=== PATIENT | male | born 1950 | race Caucasian/White ===

== ENCOUNTER → 2023-10-17 07:52 | Outpatient (REF) | payer OTHER, SELFPAY | LOC: HWRAD 07:52 | PROVIDERS: ATTENDING PHYSICIAN Internal Medicine Cardiovascular Disease; FAMILY PHYSICIAN Family Medicine | DX: I71.40 Abdominal aortic aneurysm, without rupture, unspecified (principal) | CPT/HCPCS: 76770 ==

== ENCOUNTER → 2023-10-18 15:03 | Outpatient (REF) | payer OTHER, SELFPAY | LOC: HWRAD 15:03 | PROVIDERS: ATTENDING PHYSICIAN Internal Medicine Critical Care Medicine; FAMILY PHYSICIAN Family Medicine | DX: R91.1 Solitary pulmonary nodule (principal) | CPT/HCPCS: 71250 ==

== ENCOUNTER → 2023-12-05 13:12 | Outpatient (REF) | payer OTHER, SELFPAY | LOC: RAD 13:12 | PROVIDERS: ATTENDING PHYSICIAN Internal Medicine Cardiovascular Disease; FAMILY PHYSICIAN Family Medicine | DX: I73.9 Peripheral vascular disease, unspecified (principal) | CPT/HCPCS: 93922; 93925 ==

== ENCOUNTER 2024-07-06 01:36 | Inpatient (IN) | payer OTHER, SELFPAY ==
[2024-07-05 20:33] VITALS: BP 163/95
[2024-07-05 21:14] LABS: % Basophils 0.7 % (0-2); % Eosinophils 2.3 % (0-6); % Immature Granulocytes 0.3 % (0-0.5); % Lymphocytes 20.2 % (20.5-51.1); % Monocytes 13.9 % (1.7-9.3); % Neutrophils 62.6 % (42.2-75.2); Absolute Basophils 0.1 10^3/uL (0-0.2); Absolute Eosinophils 0.2 10^3/uL (0-0.7); Absolute Lymphocytes 1.5 10^3/uL (1.2-3.4); Absolute Neutrophils 4.7 10^3/uL (1.4-6.5); Hematocrit 53.3 % (39.0-52.0); Mean Corp Hgb Conc. 33.8 g/dL (33.0-37.0); Mean Corpuscular Volume 91.9 fL (80.0-94.0); Mean Platelet Volume 8.8 fL (7.4-10.4); Nucleated Red Blood Cells % 0 % (-); Platelet Count 175 10^3/uL (130-400); Red Cell Dist. Width 12.9 % (11.5-14.5); White Blood Cell Count 7.5 10^3/uL (4.8-10.8)
[2024-07-05 21:25] LABS: ALT (SGPT) 26 U/L (0-50); AST (SGOT) 28 U/L (17-59); Albumin 4.7 g/dl (3.5-5.0); Alkaline Phosphatase 68 U/L (38-126); Blood Urea Nitrogen 28 mg/dl (9-20); Calcium 9.1 mg/dl (8.4-10.2); Carbon Dioxide 23 mmol/L (22-30); Chloride 107 mmol/L (98-107); Glucose 95 mg/dl (70-99); Potassium 4.4 mmol/L (3.5-5.1); Sodium 142 mmol/L (135-145); Total Bilirubin 0.9 mg/dl (0.2-1.3); Total Protein 7.4 g/dl (6.3-8.2); eGFR 48.85
[2024-07-05 22:28] VITALS: BMI 25.4
[2024-07-05 22:30] VITALS: BP 154/95
[2024-07-05] MEDS: DUONEB 3 ML INH ×2 (22:43→23:28)
[2024-07-05 23:00] VITALS: BP 141/86
[2024-07-05 23:13] LABS: COVID-19 Antigen Negative (Negative)
--- NOTE | 2024-07-05 23:13 | ED.GENMED ---
History of Present Illness
General
Chief Complaint: Breathing Problem
Source: patient and spouse
Exam Limitations: none
Time Seen by Provider: 07/05/24 22:23
Nursing documentation reviewed up to this point in time: agreed with
History of Present Illness
History of Present Illness:
74 yo male with h/o COPD, Afib on Eliquis, CAD, HTN, bilat carotid endarterectomy, CABG w stent, BPH, presents for cough, SOB. States started with general body aches and cough 4 days ago that has become gradually worse and last night congestion in
chest with wheezing, and few small episodes diarrhea. Denies fever. Denies chest pain.
Past History
Past History
ED Past Medical History: Arrthythmia (A-fib on Eliquis), CAD, COPD, CVA, HTN and Other (BPH)
ED Past Surgical History: Cardiac
Social History
Tobacco: Former smoker
Alcohol: Occasional
Personal:
Living: with family
Employment: Retired
Review of Systems
Review of Systems
Allergies reviewed?: Yes
All Other Systems: ROS reviewed and negative except as documented in HPI and ROS
Constitutional: Reports fever and fatigue
EENT: Denies sore throat
Respiratory: Reports cough and trouble breathing
Cardiac: Denies chest pain
ABD/GI: Reports diarrhea; Denies abdominal pain, nausea or vomiting
: Denies dysuria, frequency or difficulty voiding
Musculoskeletal: Reports no symptoms
Skin: Reports no symptoms
Neurological: Reports no symptoms
Phy Exam
Physical Exam
Physical Exam:
GENERAL: No acute distress. A&Ox3.
CONSTITUTIONAL: Afebrile.
EYES: clear, conjunctivae normal
ENMT: moist mucus membranes, Pharynx nl
RESPIRATORY: Regular respirations, mildly labored, expiratory wheezes throughout, frequent paroxysms of cough.
CARDIOVASCULAR: Regular rate and rhythm, no murmurs, no rubs.
GI: Soft, nontender, normal BS
MUSCULOSKELETAL: Moves with ease. Well perfused.
SKIN: Warm, dry, pink
PSYCH: Normal mood and affect. Well kept, interactive and appropriate
NEUROLOGIC: Awake, alert and oriented. No focal neurological deficits
Scores
Heart Failure Risk
Heart Failure Risk Score: Not Applicable
Course
Orders/Labs/Results
Orders:
Orders
07/05/24 20:38
Electrocardiogram (*1) Urgent
Reason for Study: Shortness of Breath
CR Chest - 2 Views Urgent
Comment:
Reason For Exam: sob x 4 days
07/05/24 20:40
EKG- Treatment ONCE
07/05/24 20:48
Complete Blood Count/With Diff Urgent
Comprehensive Metabolic Panel Urgent
07/05/24 22:38
COVID-19 Antigen Urgent
Source: Nasal Swab
INF RAPID [Influenza A+B Rapid Molecular] Urgent
WAYLON Source: Nasal Swab
Specimen Description:
07/05/24 22:39
Ipratropium/Albuterol Sulfate [Duoneb] 3 ml INH R NOW ONE
07/05/24 23:18
Dexamethasone Sod Phosphate [Decadron] 10 mg IV NOW STA
Ipratropium/Albuterol Sulfate [Duoneb] 3 ml INH R NOW STA
07/06/24 00:37
Admit/Transfer Patient As Directed
Co-Sign Provider:
Level of Care: Inpatient admission
Assign to:: Telemetry
Physician / Group: Layton
Diagnosis: COPD exacerbation
Reason for Telemetry: Arrhythmia
Date to Stop Telemetry: 07/09/24
Time to Stop Telemetry: 11:00
Reason for Hospitalization: COPD exacerbation
Expected length of stay greater than two midnights?: Yes
ELOS- Estimated Length of Stay in days: 3
I certify the patient meets the requirements for IP care: Yes
PRN Pain Medication Management As Directed
May give lesser potent ordered pain med per pt: Yes
preference::
Protocol:: Medication orders for pain may be administered in a
manner that supports deferring to patient preference
when the pt is:
- Requesting an ordered lesser potent pain medication.
Least to most potent pain medications are defined
as: acetaminophen < NSAID < tramadol < opioids
(morphine, oxycodone, hydromorphone).
- Requesting a lesser dose of the same medication IF
ORDERED.
- Requesting a less intrusive route of administration
if both routes are prescribed by the provider (PO <
IV).
07/06/24 00:39
Code Status As Directed
Resuscitation Status: Full Code
07/09/24 11:00
DC Protocol for Telemetry ONCE
Abnormal Lab Results
07/05/24
20:48
Hct 53.3 H %
(39.0-52.0)
Absolute Monos (auto) 1.0 H 10^3/uL
(0.1-0.6)
Lymphocytes % 20.2 L %
(20.5-51.1)
Monocytes % 13.9 H %
(1.7-9.3)
BUN 28 H mg/dl
(9-20)
Creatinine 1.5 H mg/dL
(0.7-1.3)
07/05/24 20:48
07/05/24 20:48
Vital Signs
Initial and Last Documented VS:
Initial Vital Signs
Temp Pulse Resp BP Pulse Ox
99.9 F 103 18 163/95 94
07/05/24 20:33 07/05/24 20:33 07/05/24 20:33 07/05/24 20:33 07/05/24 20:33
Last Documented Vital Signs
Temp Pulse Resp BP Pulse Ox
99.9 F 103 30 139/78 94
07/05/24 20:33 07/06/24 01:00 07/06/24 01:00 07/06/24 01:20 07/06/24 01:30
MDM/Problems Addressed
Differential Diagnosis Includes:
COPD exacerbation, PNA, Covid, adjustment
MDM/Problems Addressed:
74 yo male with h/o COPD, Afib on Eliquis, CAD, HTN, bilat carotid endarterectomy, CABG w stent, BPH, presents for cough, SOB. States started with general body aches and cough 4 days ago that has become gradually worse and last night congestion in
chest with wheezing, and few small episodes diarrhea.
Denies fever. Denies chest pain.
CBC with no clinically significant abnormality
CMP with no clinically significant abnormality
COVID-negative
Flu negative
Chest x-ray radiology report read: No acute cardiopulmonary process.
11:30 p.m.
Plan: admit: COPD exacerbation
Hospitalist notified of admission
Chronic conditions affecting care: HTN, CAD and Arrhythmia (Afib on Eliquis)
*Critical Care Note
Total Time (30-74mins, 75-104mins- exclusive of procedures): Not Applicable
ED Attending Note
-
Portions of this chart may have been created with voice recognition software.� Occasional wrong word or��sound alike� substitutions may have occurred due to the inherent limitations of voice recognition software.
Discharge Plan
Departure
Patient Disposition: Admit
Date of Disposition: 07/05/24
Time of Disposition: 23:34
Admit to: Med/Surg
Presentation/result/management discussed w/ accepting MD/DO: Hospitalist
Patient with high blood pressure during this ER visit?: No
Condition: Fair
Covid-19: Negative COVID-19
Discharge Problem:
Acute exacerbation of chronic obstructive pulmonary disease
Interventions
Interventions:
*Risk Screen - Suicide Last Done: 07/05/24 20:33
*General Assessment Last Done: 07/05/24 20:33
*Neglect/Abuse Screening Last Done: 07/05/24 20:33
*ED- Fall Risk Assessment Last Done: 07/05/24 22:31
*ED COVID-19 Vaccine History Last Done: 07/05/24 22:31
ED- Cardiac Assessment Last Done: 07/05/24 22:45
ED- Pulmonary Assessment Last Done: 07/05/24 22:45
[2024-07-05] MEDS: DECADRON 10 MG IV (23:27)
[2024-07-06] VITALS (10 sets, daily range): BP systolic 106–156; BP diastolic 78–105; BMI 24.6
--- NOTE | 2024-07-06 00:41 | HPS.HSE ---
Family Physician
-
Family Physician: Amilcar Raya, DO
Chief Complaint
-
SOB
History of Present Illness
Patient is a 74y M with PMH significant for ASCVD, A-Fib and COPD who presents to ED complaining of SOB. Patient states that he started with myalgias and 'aches and pains' all over on Monday. He has had cough and SOB that have steadily worsened
since that time. No noted fevers / chills. He was severely SOB this evening and presented to the ED for further evaluation.
Patient has appreciated audible wheezing. He states that he was at a family republic[employer] over the weekend and some people there seemed to have respiratory symptoms.
Patient took Coricidin at home without improvement in his symptoms.
Patient states that he ran out of his Trelegy inhaler about 3 weeks ago and has yet to get it refilled.
He has a nebulizer at home, but he has not been using it lately, either.
Medical History
Past Medical History
Past Medical History: Reports Other
Additional Past Medical History:
ASCVD
Hypertension
COPD
CKD III
Paroxysmal A-Fib
BARRY - Intolerant of CPAP
AAA
Past Surgical History: Reports Other
Additional Past Surgical History:
CABG x 2
Bilateral CEA
PTCA with Stent
Social History
Tobacco: Former Smoker (Quit smoking 15 years ago. > 40 pack years total use.)
Alcohol: None
Family History
Family History: Not pertinent
Allergies / Home Medications
Allergies reflects when Allergies were last updated in [employer].
Home Medications with original date entered in [employer]
Allergy/Medication List:
Allergies
Allergy/AdvReac Type Severity Reaction Status Date / Time
No Known Allergies Allergy Verified 01/12/23 14:03
Home Medications
apixaban 5 mg tablet (Eliquis) 5 mg PO BID Arrhythmia #60 tabs 02/09/21
amlodipine 5 mg tablet 5 mg PO HS 01/12/23
ascorbic acid (vitamin C) 1,000 mg tablet (Vitamin C) 1,000 mg PO DAILY supplement 01/12/23
ezetimibe 10 mg tablet 10 mg PO HS 01/12/23
tamsulosin 0.4 mg capsule 0.4 mg PO HS 01/12/23
albuterol sulfate 90 mcg/actuation aerosol inhaler 2 puff inhalation R Q6HPRN PRN shortness of breath or wheezing 07/05/24
cholecalciferol (vitamin D3) 50 mcg (2,000 unit) tablet (Vitamin D3) 50 mcg PO DAILY 07/05/24
cyanocobalamin (vitamin B-12) 1,000 mcg tablet 1,000 mcg PO DAILY 07/05/24
losartan 50 mg tablet 50 mg PO HS 07/05/24
potassium chloride 10 mEq capsule,extended release 10 meq PO DAILY 07/05/24
rosuvastatin 40 mg tablet 40 mg PO HS 07/05/24
zinc sulfate 50 mg zinc (220 mg) tablet 50 mg PO DAILY 07/05/24
Review of Systems
-
History Source: Patient
A 12 point ROS was completed and negative except as noted: Yes
Constitutional: Reports Fatigue; Denies Fever or Chills
EENT: Denies Sore Throat
Respiratory: Reports Cough and Trouble Breathing
Cardiac: Denies Chest Pain or Palpitations
Abdomen/GI: Reports Diarrhea (single episode.); Denies Abdominal Pain, Nausea or Vomiting
: Denies Dysuria, Frequency or Flank Pain
Musculoskeletal: Reports Joint Pain and Muscle Pain; Denies Edema
Neurological: Reports Headache; Denies Dizzy
Psych: Denies Depression or Anxiety
Physical Exam
Vital Signs
Vital Signs
Temp Pulse Resp BP Pulse Ox
99.9 F 113 23 106/83 94
07/05/24 20:33 07/06/24 00:00 07/06/24 00:00 07/06/24 00:00 07/06/24 00:19
Physical Exam
General: Other (74y M in mild - moderate respiratory distress.)
HEENT: Moist mucous membranes and PERRLA
Respiratory: Other (Diffuse expiratory wheezes. Harsh cough following deep inspiration. No rales.)
Cardiac: S1/S2, Irregular Rhythm and Tachycardia; No Murmur
GI: Soft, Non Tender, Non Distended and Normal Bowel Sounds
Musculoskeletal: No Clubbing, No Cyanosis and No Edema
Neuro: AO x 3
Laboratory Results
-
07/05/24 20:48
07/05/24 20:48
Laboratory Results
Total Bilirubin 0.9 mg/dl (0.2-1.3) 07/05/24 20:48
AST 28 U/L (17-59) 07/05/24 20:48
ALT 26 U/L (0-50) 07/05/24 20:48
Alkaline Phosphatase 68 U/L (38-126) 07/05/24 20:48
Impression/Plan
-
A/P: Patient is a 74y M with PMH significant for ASCVD, HTN and COPD who presents to ED complaining of 5 days of progressively worsening cough and SOB.
AE-COPD
Acute Hypoxemic Respiratory Insufficiency secondary to the above
- Admit for further evaluation and treatment.
- SpO2 at the time of my examination was 88% on 2 lpm of supplemental O2.
- COVID / flu negative in the ED. CXR unremarkable.
- IV steroids, nebs ATC and PRN. PO doxycycline course.
- Pulmonary evaluation for additional recommendations.
- Follow for clinical improvement.
- Wean from O2 as able (not on chronic O2 at home).
ASCVD
- Stable. No chest pain. EKG is without acute ischemic changes.
- Continue usual CV med regimen.
Paroxysmal Atrial Fibrillation
- Stable. In A-Fib at present (? permanent).
- Continue current med regimen including Eliquis.
CKD III
- Stable. Renal function is at / near known baseline.
BARRY
- Patient notes that he is intolerant of PAP therapy.
BPH
- Continue tamsulosin.
- Bladder scan protocol.
DVT Prophylaxis: On Eliquis
Code Status: Full
[2024-07-06] MEDS: TYLENOL 650 MG PO (02:05)
--- NOTE | 2024-07-06 04:55 | PTCARENOTE ---
Receive pt from ER. Pt alert oriented X3, calm and cooperative, mild dyspnea at rest noted. Pt assist X1 to his bed, feels slightly weak. Pt with exp wheezes, harsh, no productive cough, but states that he feels better than when he came in. VSS
(T=98, TR=179, RR=20, ZP=340/91, SpO2=94% on 2L NC). Will continue to monitor the pt.
[2024-07-06 05:53] LABS: Hematocrit 51.7 % (39.0-52.0); Hemoglobin 17.4 g/dL (13.0-18.0); Mean Corp Hgb Conc. 33.7 g/dL (33.0-37.0); Mean Corpuscular Hgb 31.1 pg (27.0-31.0); Mean Corpuscular Volume 92.3 fL (80.0-94.0); Mean Platelet Volume 9.1 fL (7.4-10.4); Platelet Count 174 10^3/uL (130-400); Red Cell Dist. Width 12.7 % (11.5-14.5); White Blood Cell Count 5.3 10^3/uL (4.8-10.8)
[2024-07-06 06:06] LABS: Blood Urea Nitrogen 27 mg/dl (9-20); Calcium 8.8 mg/dl (8.4-10.2); Carbon Dioxide 21 mmol/L (22-30); Chloride 107 mmol/L (98-107); Estimated Creatinine Clearance 42 ml/min; Glucose 219 mg/dl (70-99); Potassium 4.6 mmol/L (3.5-5.1); Sodium 141 mmol/L (135-145); eGFR 53.07
[2024-07-06] MEDS: DUONEB 3 ML INH ×4 (08:05→19:40)
--- NOTE | 2024-07-06 09:32 | W.PN.UPDATE ---
Update Note
Progress Note Update
Non-billable addendum
H&P submitted 1 AM
admitted with AECOPD. Feels slightly improved since rested and less SOB. remains on 2L NC.
Assessment:
AE-COPD
Acute Hypoxemic Respiratory Insufficiency secondary to the above
- SpO2 at the time of my examination was 88% on 2 lpm of supplemental O2.
- COVID / flu negative in the ED. CXR unremarkable.
- IV steroids, nebs ATC and PRN. PO doxycycline course.
- Pulmonary evaluation for additional recommendations.
- Follow for clinical improvement.
- Wean from O2 as able (not on chronic O2 at home).
ASCVD
- Stable. No chest pain. EKG is without acute ischemic changes.
- Continue usual CV med regimen.
Paroxysmal Atrial Fibrillation
- Stable. In A-Fib at present (? permanent).
- Continue current med regimen including Eliquis.
CKD III
- Stable. Renal function is at / near known baseline.
BARRY
- Patient notes that he is intolerant of PAP therapy.
BPH
- Continue tamsulosin.
- Bladder scan protocol.
DVT Prophylaxis: Eliquis
Code Status: Full
[2024-07-06] MEDS: ELIQUIS 5 MG PO ×2 (09:45→20:32)
[2024-07-06] MEDS: VIBRAMYCIN 100 MG PO (09:46)
[2024-07-06] MEDS: SOLU-MEDROL PF 60 MG IV ×3 (09:55→23:14)
--- NOTE | 2024-07-06 13:58 | CM ---
CM following re: discharge planning.
Reviewed pt's chart, met with pt.
pt is a 74 year old male, admitted with primary dx of COPD. PMH includes: ASCVD, A-Fib and COPD. Does not have home O2.
Pt reports he lives with spouse 2SH, 3 steps to enter, has 3 supportive stepchildren. Pt described himself as independent in all areas [employer].
PCP: Amilcar Raya
[facility]
D/C plan: home with anticipated no needs. Spouse to transport at discharge.
CM will follow with discharge plan updates as hospitalization progresses
--- NOTE | 2024-07-06 14:30 | PTCARENOTE ---
pt with coughing episode, nonproductive, harsh cough. HR up to 140, non sustaining. SOB noted. SPO2 94% on 2L O2. Made Dr. Camilo aware, see orders for Tessalon Perles and Phenergan with codeine, will monitor.
--- NOTE | 2024-07-06 14:50 | CON.PUL ---
Consultation
Consultation Request
Date/Time Consultation Requested: 07/06/2024 - 222
Date/Time Consultation Performed: 07/06/2024 - 1230
Requesting Provider: Dr. Traylor
Performing Provider: Dr. Coles
Reason for Consultation: AECOPD
Medical History
-
Chief Complaint: SOB
History of Present Illness:
74-year-old male former tobacco smoker with a past medical history of COPD/emphysema, hypertension, AAA, PVD, CAD, hypercholesterolemia, CKD, BARRY intolerant to CPAP, A-fib, history of CVA and pulmonary hypertension who presents with shortness of
breath for several days. He had a recent URI about 1 week prior to arrival while at a family democrat where several people there had respiratory symptoms. He had a cough and shortness of breath that had worsened since that time. No fevers or chills.
Patient follows with us in the pulmonary office, last visit 05/01/2024 with Phyllis Ponce -he was given a sample of Trelegy 100mcg and he was supposed to call to get it officially sent over as a prescription but he never did this. He believes that
he felt that his breathing was stable on the Trelegy but he does not think that it markedly improved. last bobby on 05/01/2024 showing moderate COPD; last PFT on 08/10/2022 showing moderate COPD with a moderately reduced gas exchange capacity which
is mild when accounting for alveolar volume involved in gas exchange (DLco: 57%, DLco/VA: 67%). Currently, patient's absolute eosinophils are 200, creatinine 1.5, and imaging shows no acute process. He does have known scarring in his lingula and
lateral left lower lobe seen on prior CT chest from September 2023. He was given DuoNebs and Decadron in the ER and admitted to the floor for further management. Pulmonary service now consulted for additional management/recommendations.
When I saw the patient, patient's , Anitra, present at bedside. He says he feels well today, lop-ear than yesterday. Currently on 2 L/min nasal cannula. Still short of breath with exertion and still coughing. His cough is mainly dry although
sometimes has phlegm that he produces. Per the , when he lays down he has postnasal drip which causes him to cough and then he deteriorates from there. He is not on home oxygen. He currently denies chest pain, FLORES, nausea, fevers or chills.
PMHx: AAA, PVD, COPD/emphysema, hypertension, CAD, hypercholesterolemia, CKD, BARRY intolerant to CPAP, A-fib, secondary hyperparathyroidism, history of CVA, right thyroid nodule, pulmonary hypertension
PSHx: CABG x 2, coronary stent, cardioversion
Past Medical History
Past Medical History: Other (Above as per HPI)
Past Surgical History: Other (Above as per HPI)
Social History
Tobacco: Former Smoker (>23-[id number]-biwr history, quit 2010)
Alcohol: None
Drug: None
Personal:
Living: With Family (=Anitra)
Family History
Family History: Cancer (Brother: Stomach cancer) and Other (Father: Valvular heart disease; Sister: Advanced multiple sclerosis)
Allergies / Home Medications
Allergies
Allergy/AdvReac Type Severity Reaction Status Date / Time
No Known Allergies Allergy Verified 01/12/23 14:03
Home Medications
�Medication �Instructions �Recorded �Confirmed �Last Taken �Type
apixaban 5 mg tablet (Eliquis) 5 mg PO BID Arrhythmia #60 tabs 04/28/20 07/05/24 2 Days Ago Rx
~01/10/23
amlodipine 5 mg tablet 5 mg PO HS 01/12/23 07/05/24 2 Days Ago History
~01/10/23
ascorbic acid (vitamin C) 1,000 mg 1,000 mg PO DAILY supplement 01/12/23 07/05/24 Unknown History
tablet (Vitamin C)
ezetimibe 10 mg tablet 10 mg PO HS 01/12/23 07/05/24 2 Days Ago History
~01/10/23
tamsulosin 0.4 mg capsule 0.4 mg PO HS 01/12/23 07/05/24 2 Days Ago History
~01/10/23
albuterol sulfate 90 mcg/actuation 2 puff inhalation R Q6HPRN PRN 07/05/24 07/05/24 Unknown History
aerosol inhaler shortness of breath or wheezing
cholecalciferol (vitamin D3) 50 50 mcg PO DAILY 07/05/24 07/05/24 Unknown History
mcg (2,000 unit) tablet (Vitamin
D3)
cyanocobalamin (vitamin B-12) 1,000 mcg PO DAILY 07/05/24 07/05/24 Unknown History
1,000 mcg tablet
losartan 50 mg tablet 50 mg PO HS 07/05/24 07/05/24 Unknown History
potassium chloride 10 mEq 10 meq PO DAILY 07/05/24 07/05/24 Unknown History
capsule,extended release
rosuvastatin 40 mg tablet 40 mg PO HS 07/05/24 07/05/24 Unknown History
zinc sulfate 50 mg zinc (220 mg) 50 mg PO DAILY 07/05/24 07/05/24 Unknown History
tablet
Review of Systems
-
History Source: Patient
All other systems: Negative unless noted
Vitals / Labs / Diagnostic Testing
Vital Signs
Temp Pulse Resp BP Pulse Ox
97.7 F 96 16 137/81 97
07/06/24 07:50 07/06/24 08:09 07/06/24 08:09 07/06/24 07:50 07/06/24 08:09
Lab Data
07/06/24 04:54
07/06/24 04:54
Microbiology
07/05/24 22:38 Nasal Swab Influenza Types A & B (GAMALIEL) - Final
Negative for Influenza A & B, NAAT
Negative results must be combined with clinical observations
and patient history.
Nucleic Acid Amplification test (NAAT)performed on the
[employer] platform.
Diagnostic Testing:
Physical Exam
-
HEENT: Normocephalic and Anicteric
Cardiovascular: Peripheral Edema (negative) and Other (Tachycardic)
Respiratory: Wheeze ([place] bilaterally upon expiration), Rales (negative), Rhonchi (negative) and Non-Labored Respirations
GI: Soft, Non Distended, Non Tender and Normal Bowel Sounds
Neurology: AO x 3 and Tremors (negative)
Skin: Warm and Dry
General: Respiratory Distress (negative), Comfortable, Fever (negative) and Chills (negative)
Assessment
-
Assessment: 74-year-old male former tobacco smoker with a past medical history of COPD/emphysema, hypertension, AAA, PVD, CAD, hypercholesterolemia, CKD, BARRY intolerant to CPAP, A-fib, history of CVA and pulmonary hypertension who presents with
shortness of breath for several days. He had a recent URI about 1 week prior to arrival while at a family democrat where several people there had respiratory symptoms. He had a cough and shortness of breath that had worsened since that time. No
fevers or chills. Patient follows with us in the pulmonary office, last visit 05/01/2024 with Phyllis Ponce -he was given a sample of Trelegy 100mcg and he was supposed to call to get it officially sent over as a prescription but he never did this.
He believes that he felt that his breathing was stable on the Trelegy but he does not think that it markedly improved. last bobby on 05/01/2024 showing moderate COPD; last PFT on 08/10/2022 showing moderate COPD with a moderately reduced gas
exchange capacity which is mild when accounting for alveolar volume involved in gas exchange (DLco: 57%, DLco/VA: 67%). Currently, patient's absolute eosinophils are 200, creatinine 1.5, and imaging shows no acute process. He does have known
scarring in his lingula and lateral left lower lobe seen on prior CT chest from September 2023. He was given DuoNebs and Decadron in the ER and admitted to the floor for further management. Pulmonary service now consulted for additional
management/recommendations.
Chronic conditions [employer]: AAA, PVD, COPD/emphysema, hypertension, CAD, hypercholesterolemia, CKD, BARRY intolerant to CPAP, A-fib, secondary hyperparathyroidism, history of CVA, right thyroid nodule, pulmonary hypertension
Impression:
#Acute COPD exacerbation
#Acute respiratory failure with hypoxia due to above
#ROSA ISELA
#Hyperglycemia
#History of gold class II COPD with centrilobular emphysema seen on CT chest imaging
#Scarring in the lingula + left lower lobe seen on CT chest from 09/2023
#Former tobacco smoker (>[id number] history, quit 2010)
Plan:
- Now that he is hospitalized for a COPD exacerbation, he has group E COPD
- He is prescribed Trelegy as an outpatient but does not have an official prescription; this needs to be started upon discharge from the hospital; if too costly then would do Incruse + Breo
- He is currently wheezing so would wait to start MDI or DPI inhalers until his respiratory status improves and he can take in a deep breath with good technique
- For now continue with DuoNebs QID, and I will start budesonide BID
- Continue prn albuterol
- Continue systemic steroids, currently on solumedrol 60mg IV q8hr - wean as he clinically improves
- Monitor BG while on high-dose steroids, with goal >100 and <180; check A1C
- Antitussants prn; mucolytics prn
- Aspiration precautions
- Seems as if he has postnasal drip when he lays supine; I encouraged him to use Flonase as an outpatient and to use it every single day at least for 30 days before he decides it does not work
- Perhaps he also could see ENT as an outpatient
- He may be a candidate for other agents like azithromycin or Ohtuvayre. Given that his absolute eosinophils are <300, do not feel that he would benefit from Dupixent
- Given that he has no evidence of pneumonia and his WBC count is normal, unclear if he needs doxycycline
- Will switch to azithromycin given its anti-inflammatory effect which would be more beneficial compared to doxycycline
- QTc was 387 ms on admission EKG
- Maintain SpO2 88-95% with supplemental O2 and wean down as tolerated (he is not on home O2)
- He will need an ambulatory pulse oximetry prior to discharge
- Incentive spirometer encouraged q1hr while awake
- For his A-fib, rate control with goal <110
- Replete electrolytes with K>4, Mg>2
- Trend H/H and transfuse if needed to keep Hb>7g/dL; keep plt>20k, unless there is concern for bleeding then keep plt>50k
- DVT ppx: Eliquis
Pulmonary service will continue to follow along. He will continue to follow-up with us in the office - last visit on 05/01/2024 with MEGAN Xiao - he usually sees Dr. Anderson. He will be due for a repeat CT chest for lung cancer screening in
September 2024.
Data:
CXR 07/05/2024: No acute cardipulmonary process.
Total time spent today was 58 minutes for this encounter. Time includes reviewing laboratory test/imaging results, reviewing pertinent medical records, obtaining and reviewing medical history, performing an appropriate exam, ordering medications,
tests and procedures. Time also includes documentation of this encounter, coordinating patient care and communicating with other healthcare professionals. Total time does not include separately billed tests performed on this date of service.
[2024-07-06] MEDS: PHENERGAN WITH CODEINE SYRUP 5 ML PO ×2 (15:08→20:45)
[2024-07-06] MEDS: TESSALON PERLES 200 MG PO (17:22)
[2024-07-06] MEDS: PULMICORT 0.5 MG INH (19:40)
[2024-07-06] MEDS: ZITHROMAX INFUSION 250 IV (20:31)
[2024-07-06] MEDS: FLOMAX 0.4 MG PO (23:13)
[2024-07-06] MEDS: COZAAR 50 MG PO (23:13)
[2024-07-06] MEDS: NORVASC 5 MG PO (23:13)
[2024-07-06] MEDS: CRESTOR 40 MG PO (23:13)
[2024-07-06] MEDS: VENTOLIN NEBULES 2.5 MG INH (23:33)
[2024-07-07] MEDS: PHENERGAN WITH CODEINE SYRUP 5 ML PO ×3 (00:55→19:53)
[2024-07-07 03:32] VITALS: BP 118/66
[2024-07-07 05:49] LABS: Hematocrit 48.5 % (39.0-52.0); Hemoglobin 16.6 g/dL (13.0-18.0); Mean Corp Hgb Conc. 34.2 g/dL (33.0-37.0); Mean Corpuscular Hgb 31.3 pg (27.0-31.0); Mean Corpuscular Volume 91.5 fL (80.0-94.0); Mean Platelet Volume 8.9 fL (7.4-10.4); Platelet Count 169 10^3/uL (130-400); Red Cell Dist. Width 12.7 % (11.5-14.5); White Blood Cell Count 15.3 10^3/uL (4.8-10.8)
[2024-07-07 06:00] VITALS: BMI 24.4
[2024-07-07 06:12] LABS: Blood Urea Nitrogen 39 mg/dl (9-20); Calcium 9.3 mg/dl (8.4-10.2); Carbon Dioxide 20 mmol/L (22-30); Chloride 105 mmol/L (98-107); Estimated Creatinine Clearance 46 ml/min; Glucose 152 mg/dl (70-99); Potassium 4.3 mmol/L (3.5-5.1); Sodium 140 mmol/L (135-145); eGFR 58.01
[2024-07-07] MEDS: DUONEB 3 ML INH ×4 (07:26→19:09)
[2024-07-07] MEDS: PULMICORT 0.5 MG INH ×2 (07:26→19:09)
[2024-07-07 07:30] VITALS: BP 115/70
[2024-07-07] MEDS: ZITHROMAX 250 MG PO (08:57)
[2024-07-07] MEDS: ELIQUIS 5 MG PO ×2 (08:57→19:52)
[2024-07-07] MEDS: SOLU-MEDROL PF 60 MG IV ×3 (08:57→23:00)
[2024-07-07 09:42] LABS: Glycohemoglobin (HgbA1c) 5.9 % (4.0-5.6)
--- NOTE | 2024-07-07 09:51 | W.PN.HOSP.TC ---
Today's Communication/Plan
-
continue IV steroids
continue steroid nebs, bronchodilators scheduled and prn
continue azithromycin
wean O2 as able
follow pulm recs
Assessment / Plan
Assessment / Plan
Assessment:
AE-COPD
Acute Hypoxemic Respiratory Insufficiency secondary to the above
- COVID / flu negative in the ED. CXR unremarkable.
- IV steroids, nebs ATC and PRN. Steroid nebs
- Trelegy at discharge
- PO azithromycin course.
- Follow for clinical improvement.
- Wean from O2 as able (not on chronic O2 at home).
- appreciate Pulmonary eval; follow their recs
ASCVD
- Stable. No chest pain. EKG is without acute ischemic changes.
- Continue usual CV med regimen.
Paroxysmal Atrial Fibrillation
- Stable. In A-Fib at present (? permanent).
- Continue current med regimen including Eliquis.
CKD III
- Stable. Renal function is at/near known baseline.
BARRY
- Patient notes that he is intolerant of PAP therapy.
BPH
- Continue tamsulosin.
- Bladder scan protocol.
DVT Prophylaxis: Eliquis
Code Status: Full
Anticipated Discharge: > 48 hours
Subjective/Interval History
-
Date of Service: July 07, 2024
reports some improvement in wheezing
Objective Data
-
Labs:
Laboratory Results
07/07/24
04:53
WBC 15.3 H
Hgb 16.6
Hct 48.5
Plt Count 169
Sodium 140
Potassium 4.3
Chloride 105
Carbon Dioxide 20 L
BUN 39 H
Creatinine 1.3
Glucose 152 H
Calcium 9.3
Vital Signs:
Vital Signs
Temp Pulse Resp BP Pulse Ox
98.0 F 90 18 115/70 94
07/07/24 07:30 07/07/24 07:30 07/07/24 07:30 07/07/24 07:30 07/07/24 07:30
I&O
07/06/24 07/07/24 07/08/24
06:59 06:59 06:59
Intake Total 900 / 900
Balance 900 / 900
Physical Exam
-
General: No Apparent Distress
HEENT: Normocephalic and Atraumatic
Respiratory: Wheezes
Cardiac: Regular Rhythm and S1/S2
GI: Soft and Nontender
Genito-urinary: No Costovertebral Tender
Musculoskeletal: No Edema
Neuro: AO x 3
Psych: Calm
Data Reviewed
-
Total Time Spent with Patient (in minutes): 44
Labs: Labs Reviewed by me
[2024-07-07 11:03] VITALS: BP 124/69
[2024-07-07 15:40] VITALS: BP 131/76
--- NOTE | 2024-07-07 16:40 | W.PN.PUL3 ---
Addendum entered and electronically signed by Meño Coles MD 07/07/24 19:23:
Correction - wean down to Solu-Medrol 40mg IV q12hr tomorrow, not 60mg q12hr
Original Note:
Today's Communication / Plan
-
DuoNebs + budesonide
SpO2 goal 88-95%
Check ambulatory pulse oximetry prior to discharge
Up OOB as tolerated
Anti-tussants prn
Encouraged incentive spirometer however he had a coughing spell yesterday after using it so I told him to wait until tomorrow to start using again
Systemic steroids with weaning down to 60 mg IV q12hr tomorrow
Goal BG 140�180
Continue Eliquis
Outpatient pulmonary office follow-up will be arranged
Assessment
-
Assessment: 74-year-old male former tobacco smoker with a past medical history of COPD/emphysema, hypertension, AAA, PVD, CAD, hypercholesterolemia, CKD, BARRY intolerant to CPAP, A-fib, history of CVA and pulmonary hypertension who presents with
shortness of breath for several days. He had a recent URI about 1 week prior to arrival while at a family alliance party where several people there had respiratory symptoms. He had a cough and shortness of breath that had worsened since that time. No
fevers or chills. Patient follows with us in the pulmonary office, last visit 05/01/2024 with Phyllis Ponce -he was given a sample of Trelegy 100mcg and he was supposed to call to get it officially sent over as a prescription but he never did this.
He believes that he felt that his breathing was stable on the Trelegy but he does not think that it markedly improved. last bobby on 05/01/2024 showing moderate COPD; last PFT on 08/10/2022 showing moderate COPD with a moderately reduced gas
exchange capacity which is mild when accounting for alveolar volume involved in gas exchange (DLco: 57%, DLco/VA: 67%). Currently, patient's absolute eosinophils are 200, creatinine 1.5, and imaging shows no acute process. He does have known
scarring in his lingula and lateral left lower lobe seen on prior CT chest from September 2023. He was given DuoNebs and Decadron in the ER and admitted to the floor for further management. Pulmonary service now consulted for additional
management/recommendations.
Chronic conditions AIR INTELLIGENCE OFFICER: AAA, PVD, COPD/emphysema, hypertension, CAD, hypercholesterolemia, CKD, BARRY intolerant to CPAP, A-fib, secondary hyperparathyroidism, history of CVA, right thyroid nodule, pulmonary hypertension
Impression:
#Acute COPD exacerbation
#Acute respiratory failure with hypoxia due to above
#ROSA ISELA
#Hyperglycemia
#History of gold class II COPD with centrilobular emphysema seen on CT chest imaging
#Scarring in the lingula + left lower lobe seen on CT chest from 09/2023
#Former tobacco smoker (>61-sstd-xeil history, quit 2010)
Plan:
- Now that he is hospitalized for a COPD exacerbation, he has group E COPD
- He is prescribed Trelegy as an outpatient but does not have an official prescription; this needs to be started upon discharge from the hospital; if too costly then would do Incruse + Breo
- He was wheezing on 07/06, so would wait to start MDI or DPI inhalers until his respiratory status improves and he can take in a deep breath with good technique - wheezing improved as of 07/07
- Continue with DuoNebs QID + budesonide BID
- Continue prn albuterol
- Continue systemic steroids, currently on solumedrol 60mg IV q8hr - will start to wean to 40mg IV q12hr tomorrow and continue to wean as he clinically improves
- Monitor BG while on high-dose steroids, with goal >100 and <180; A1C: 5.9 on 07/07/2024
- Antitussants prn; mucolytics prn
- Aspiration precautions
- Seems as if he has postnasal drip when he lays supine; I encouraged him to use Flonase as an outpatient and to use it every single day at least for 30 days before he decides it does not work
- Perhaps he also could see ENT as an outpatient
- He may be a candidate for other agents like azithromycin or Ohtuvayre. Given that his absolute eosinophils are <300, do not feel that he would benefit from Dupixent
- Given that he has no evidence of pneumonia and his WBC count was normal on 07/05 - 07/06 (now elevated likely due to steroids), unclear if he needs doxycycline
- Switched to azithromycin on 07/06 given its anti-inflammatory effect which would be more beneficial compared to doxycycline
- QTc was 387 ms on admission EKG
- Maintain SpO2 88-95% with supplemental O2 if needed
- He will need an ambulatory pulse oximetry prior to discharge
- Incentive spirometer encouraged q1hr while awake
- For his A-fib, rate control with goal <110; currently in NSR
- Replete electrolytes with K>4, Mg>2
- Trend H/H and transfuse if needed to keep Hb>7g/dL; keep plt>20k, unless there is concern for bleeding then keep plt>50k
- DVT ppx: Eliquis
Pulmonary service will continue to follow along. He will continue to follow-up with us in the office - last visit on 05/01/2024 with MEGAN Xiao - he usually sees Dr. Anderson. He will be due for a repeat CT chest for lung cancer screening in
September 2024.
Data:
CXR 07/05/2024: No acute cardipulmonary process.
Total time spent today was 36 minutes for this encounter. Time includes reviewing laboratory test/imaging results, reviewing pertinent medical records, obtaining and reviewing medical history, performing an appropriate exam, ordering medications,
tests and procedures. Time also includes documentation of this encounter, coordinating patient care and communicating with other healthcare professionals. Total time does not include separately billed tests performed on this date of service.
Subjective Data
-
Date of Service:
Date of Service: July 07, 2024
Chief Complaint: Pulmonary Follow Up
Subjective:
Patient was seen and evaluated today at bedside. (Late note entry). Patient's mother, Latasha, and were at bedside. Patient is currently on 2 L/min nasal cannula. No issues overnight reported. Patient says he used the incentive spirometer
yesterday and then coughed severely afterwards. He currently feels okay, denying chest pain, FLORES, fevers or chills.
Review of Systems
General: Other (Negative unless mentioned above)
Objective Data
Data Reviewed
Vital Signs / I&O / Oxygen:
Vital Signs
Temp Pulse Resp BP Pulse Ox
98.0 F 90 18 115/70 94
07/07/24 07:30 07/07/24 07:30 07/07/24 07:30 07/07/24 07:30 07/07/24 07:30
Intake and Output
07/06/24 07/07/24 07/08/24
06:59 06:59 06:59
Intake Total 900 / 900
Balance 900 / 900
SaO2 94
Nasal Cannula flow liters per 2
minute
Physical Exam
General: Respiratory Distress (negative), Comfortable, Chills (negative) and Sweats (negative)
HEENT: Normocephalic and Anicteric
Cardiovascular: S1-S2 and Peripheral Edema (negative)
Respiratory: Wheeze (negative), Crackles (negative), Rhonchi (negative), Non-Labored Respirations and Other (Diminished breath sounds bilaterally)
GI: Soft, Non Distended, Non Tender and Normal Bowel Sounds
Neurology: AO x 3 and Tremors (negative)
Skin: Warm, Dry, Cyanosis (negative) and Jaundice (negative)
Labs/Micro/Reports
Lab Data
07/07/24 04:53
07/07/24 04:53
Microbiology
07/05/24 22:38 Nasal Swab Influenza Types A & B (GAMALIEL) - Final
Negative for Influenza A & B, NAAT
Negative results must be combined with clinical observations
and patient history.
Nucleic Acid Amplification test (NAAT)performed on the
[employer] platform.
[2024-07-07 19:23] VITALS: BP 142/85
[2024-07-07] MEDS: CRESTOR 40 MG PO (21:47)
[2024-07-07] MEDS: FLOMAX 0.4 MG PO (21:47)
[2024-07-07] MEDS: TESSALON PERLES 200 MG PO (21:48)
[2024-07-07] MEDS: NORVASC 5 MG PO (21:48)
[2024-07-07] MEDS: COZAAR 50 MG PO (21:48)
[2024-07-07 23:24] VITALS: BP 124/65
[2024-07-08] VITALS (7 sets, daily range): BP systolic 135–190; BP diastolic 63–95; PULSE 94; O2SAT 92; BMI 25.2
[2024-07-08 06:16] LABS: Hematocrit 47.8 % (39.0-52.0); Hemoglobin 16.2 g/dL (13.0-18.0); Mean Corp Hgb Conc. 33.9 g/dL (33.0-37.0); Mean Corpuscular Hgb 31.4 pg (27.0-31.0); Mean Corpuscular Volume 92.6 fL (80.0-94.0); Mean Platelet Volume 8.9 fL (7.4-10.4); Platelet Count 171 10^3/uL (130-400); Red Blood Cell Count 5.16 10^6/uL (4.70-6.10); Red Cell Dist. Width 12.8 % (11.5-14.5); White Blood Cell Count 21.1 10^3/uL (4.8-10.8)
[2024-07-08] MEDS: DUONEB 3 ML INH ×4 (07:21→19:49)
[2024-07-08] MEDS: PULMICORT 0.5 MG INH ×2 (07:21→19:49)
[2024-07-08 07:50] LABS: Blood Urea Nitrogen 55 mg/dl (9-20); Calcium 9.2 mg/dl (8.4-10.2); Carbon Dioxide 20 mmol/L (22-30); Chloride 109 mmol/L (98-107); Estimated Creatinine Clearance 40 ml/min; Glucose 136 mg/dl (70-99); Potassium 4.3 mmol/L (3.5-5.1); Sodium 141 mmol/L (135-145); eGFR 48.85
--- NOTE | 2024-07-08 08:35 | W.PN.HOSP.TC ---
Today's Communication/Plan
-
oral short acting Cardizem for rate control of Afib/NSVT
stop norvasc
continue IV steroids, IS, Nebs
wean O2; Home O2 testing
follow pulm recs
Assessment / Plan
Assessment / Plan
Assessment:
AE-COPD
Acute Hypoxemic Respiratory Insufficiency secondary to the above
- COVID/flu negative in the ED. CXR unremarkable.
- continue IV steroids, nebs ATC and PRN. Steroid nebs
- Trelegy at discharge
- PO azithromycin course.
- Follow for clinical improvement.
- Wean from O2 as able (not on chronic O2 at home).; home O2 eval today.
- appreciate Pulmonary eval; follow their recs
ASCVD
- Stable. No chest pain. EKG is without acute ischemic changes.
- Continue usual CV med regimen.
Permanent Atrial Fibrillation
NSVT on tele
- added low dose Cardizem for rate control
- Continue Eliquis.
Essential HTN
- continue Losartan
- stop Amlodipine and start Cardizem as above for rate control
CKD IIIb (no ROSA ISELA)
- Stable. Renal function is at/near known baseline.
BARRY
- Patient notes that he is intolerant of PAP therapy.
BPH
- Continue tamsulosin.
- Bladder scan protocol.
DVT Prophylaxis: Eliquis
Code Status: Full
Anticipated Discharge: 24 - 48 hours
Subjective/Interval History
-
Date of Service: July 08, 2024
resting comfortably, no complaints at present
feels '80% improved'
Objective Data
-
Labs:
Laboratory Results
07/08/24
05:55
WBC 21.1 H
Hgb 16.2
Hct 47.8
Plt Count 171
Sodium 141
Potassium 4.3
Chloride 109 H
Carbon Dioxide 20 L
BUN 55 H
Creatinine 1.5 H
Glucose 136 H
Calcium 9.2
Vital Signs:
Vital Signs
Temp Pulse Resp BP Pulse Ox
98.1 F 95 18 142/95 96
07/08/24 03:29 07/08/24 07:26 07/08/24 07:26 07/08/24 03:29 07/08/24 07:26
I&O
07/07/24 07/08/24 07/09/24
06:59 06:59 06:59
Intake Total 900 / 900 720 / 720
Output Total 400 / 400
Balance 900 / 900 320 / 320
Physical Exam
-
General: No Apparent Distress
HEENT: Normocephalic and Atraumatic
Respiratory: Wheezes
Cardiac: Irregular Rhythm
GI: Soft and Nontender
Musculoskeletal: No Edema
Neuro: AO x 3
Psych: Calm
Data Reviewed
-
Total Time Spent with Patient (in minutes): 44
Labs: Labs Reviewed by me
[2024-07-08] MEDS: MIRALAX 17 GRAMS PO (08:45)
[2024-07-08] MEDS: ELIQUIS 5 MG PO ×2 (08:45→20:33)
[2024-07-08] MEDS: ZITHROMAX 250 MG PO (08:45)
[2024-07-08] MEDS: CARDIZEM 30 MG PO ×4 (08:45→20:33)
[2024-07-08] MEDS: SOLU-MEDROL PF 40 MG IV (08:46)
[2024-07-08 08:55] LABS: Magnesium 2.4 mg/dl (1.6-2.3)
[2024-07-08] MEDS: PHENERGAN WITH CODEINE SYRUP 5 ML PO ×3 (08:59→22:49)
--- NOTE | 2024-07-08 09:25 | W.PN.PUL3 ---
Today's Communication / Plan
-
Doing well, stable on RA, able to get OOB to chair
Transition IV steroids to PO taper, continue at home
IV abx on, can continue for finite course
Reviewed breathing techniques, IS
Can consider d/c planning in AM if doing well
We discussed OP FU for further planning, repeat PFTs
Assessment
-
74-year-old male former tobacco smoker with a past medical history of COPD/emphysema, hypertension, AAA, PVD, CAD, hypercholesterolemia, CKD, BARRY intolerant to CPAP, A-fib, history of CVA and pulmonary hypertension who presents with shortness of
breath for several days. He had a recent URI about 1 week prior to arrival while at a family alliance party where several people there had respiratory symptoms. He had a cough and shortness of breath that had worsened since that time. No fevers or chills.
Patient follows with us in the pulmonary office, last visit 05/01/2024 with Phyllis Ponce -he was given a sample of Trelegy 100mcg and he was supposed to call to get it officially sent over as a prescription but he never did this. He believes that
he felt that his breathing was stable on the Trelegy but he does not think that it markedly improved. last bobby on 05/01/2024 showing moderate COPD; last PFT on 08/10/2022 showing moderate COPD with a moderately reduced gas exchange capacity which
is mild when accounting for alveolar volume involved in gas exchange (DLco: 57%, DLco/VA: 67%). Currently, patient's absolute eosinophils are 200, creatinine 1.5, and imaging shows no acute process. He does have known scarring in his lingula and
lateral left lower lobe seen on prior CT chest from September 2023. He was given DuoNebs and Decadron in the ER and admitted to the floor for further management. Pulmonary service now consulted for additional management/recommendations.
#Acute COPD exacerbation
#Acute respiratory failure with hypoxia due to above
#ROSA ISELA
#Hyperglycemia
Chronic conditions LEAD MACHINIST:
History of gold class II COPD with centrilobular emphysema seen on CT chest imaging
Scarring in the lingula + left lower lobe seen on CT chest from 09/2023
Former tobacco smoker (>37-ewvn-rmal history, quit 2010)
AAA
PVD
Hypertension
CAD
Hypercholesterolemia
CKD
BARRY intolerant to CPAP (AHI 20.3 on HST 08/23/22)
A-fib
Secondary hyperparathyroidism
History of CVA
Right thyroid nodule
Pulmonary hypertension
Plan:
AE COPD -- first exacerbation in years
He is prescribed Trelegy as an outpatient but does not have an official prescription; this needs to be started upon discharge from the hospital; if too costly then would do Incruse + Breo
Wheezing and breathing improving today-- will transition IV steroids to PO taper
Continue with DuoNebs QID + budesonide BID
Continue prn albuterol
Monitor BG while on high-dose steroids, with goal >100 and <180; A1C: 5.9 on 07/07/2024
Antitussants prn; mucolytics prn
Aspiration precautions
Seems as if he has postnasal drip when he lays supine; I encouraged him to use Flonase as an outpatient and to use it every single day at least for 30 days before he decides it does not work
Perhaps he also could see ENT as an outpatient
He may be a candidate for other agents like azithromycin or Ohtuvayre. Given that his absolute eosinophils are <300, do not feel that he would benefit from Dupixent
Given that he has no evidence of pneumonia and his WBC count was normal on 07/05 - 07/06 (now elevated likely due to steroids), unclear if he needs doxycycline
Switched to azithromycin on 07/06 given its anti-inflammatory effect which would be more beneficial compared to doxycycline
QTc was 387 ms on admission EKG
Maintain SpO2 88-95% with supplemental O2 if needed
He will need an ambulatory pulse oximetry prior to discharge
Incentive spirometer encouraged q1hr while awake
For his A-fib, rate control with goal <110; currently in NSR
Replete electrolytes with K>4, Mg>2
Prior ECHO reviewed/preserved function
BARRY not on CPAP
Moderate per HST in 2022
Encourage treatment given comorbidities
- Trend H/H and transfuse if needed to keep Hb>7g/dL; keep plt>20k, unless there is concern for bleeding then keep plt>50k
- DVT ppx: Eliquis
Pulmonary service will continue to follow along.
He will continue to follow-up with us in the office - last visit on 05/01/2024 with MEGAN Xiao - he usually sees Dr. Anderson.
He will be due for a repeat CT chest for lung cancer screening in September 2024.
We will arrange OP FU
Data:
CXR 07/05/2024: No acute cardiopulmonary process.
CT Chest 10/18/23- 1. No suspicious pulmonary mass or nodule identified.
2. Moderate changes of centrilobular and paraseptal emphysema as seen prior.
3. Bilateral chronic subsegmental atelectatic change/scarring as detailed above.
4. Coronary and aortic atherosclerosis, post coronary artery bypass.
ECHO 02/06/23- 1. Small left ventricle with mild left ventricular hypertrophy and preserved systolic function, EF 60-65%
2. Trace mitral regurgitation with dilated left atrium
3. Normal aortic valve
4. Top normal right ventricle with dilated right atrium and pulmonary artery systolic pressure 25-30 mmHg
Total time spent today was 51 minutes for this encounter. Time includes reviewing laboratory test/imaging results, reviewing pertinent medical records, obtaining and reviewing medical history, performing an appropriate exam, ordering medications,
tests and procedures. Time also includes documentation of this encounter, coordinating patient care and communicating with other healthcare professionals. Total time does not include separately billed tests performed on this date of service.
Subjective Data
-
Date of Service:
Date of Service: July 08, 2024
Chief Complaint: Pulmonary Follow Up
Subjective:
Doing well today, still has wheezing but he notes that this is chronic
No new complaints
He is ready to think about d/c
Objective Data
Data Reviewed
Vital Signs / I&O / Oxygen:
Vital Signs
Temp Pulse Resp BP Pulse Ox
98.1 F 106 18 190/76 93
07/08/24 08:37 07/08/24 08:45 07/08/24 08:37 07/08/24 08:45 07/08/24 08:37
Intake and Output
07/07/24 07/08/24 07/09/24
06:59 06:59 06:59
Intake Total 900 / 900 720 / 720
Output Total 400 / 400
Balance 900 / 900 320 / 320
SaO2 93
Nasal Cannula flow liters per 2
minute
Physical Exam
General: Respiratory Distress (negative), Comfortable, Chills (negative), Sweats (negative) and Good Appetite
HEENT: Normocephalic, Anicteric and Moist Mucous Membranes
Cardiovascular: S1-S2, Regular Rhythm and Peripheral Edema (negative)
Respiratory: Wheeze (slight bilateral), Crackles (negative), Rhonchi (negative) and Non-Labored Respirations
GI: Soft, Non Distended, Non Tender and Normal Bowel Sounds
Neurology: AO x 3 and Tremors (negative)
Skin: Warm, Dry, Cyanosis (negative) and Jaundice (negative)
Labs/Micro/Reports
Lab Data
07/08/24 05:55
07/08/24 05:55
Microbiology
07/05/24 22:38 Nasal Swab Influenza Types A & B (GAMALIEL) - Final
Negative for Influenza A & B, NAAT
Negative results must be combined with clinical observations
and patient history.
Nucleic Acid Amplification test (NAAT)performed on the
[employer] platform.
[2024-07-08] MEDS: TESSALON PERLES 200 MG PO ×2 (11:49→20:33)
--- NOTE | 2024-07-08 16:33 | CM ---
Patient doing well with therapy, appears to be close to baseline.
Plan: Case management will continue to follow and assist with discharge planning. Patient would like to return home.
[2024-07-08] MEDS: DELTASONE 50 MG PO (16:57)
[2024-07-08] MEDS: COZAAR 50 MG PO (20:32)
[2024-07-08] MEDS: CRESTOR 40 MG PO (20:33)
[2024-07-08] MEDS: FLOMAX 0.4 MG PO (20:33)
[2024-07-09] MEDS: TUMS CHEWABLE TABLET 400 MG PO (03:03)
[2024-07-09 03:17] VITALS: BP 144/70
[2024-07-09 06:00] VITALS: BMI 25.4
[2024-07-09 06:26] LABS: Hematocrit 44.9 % (39.0-52.0); Hemoglobin 15.4 g/dL (13.0-18.0); Mean Corp Hgb Conc. 34.3 g/dL (33.0-37.0); Mean Corpuscular Hgb 31.6 pg (27.0-31.0); Platelet Count 178 10^3/uL (130-400); Red Blood Cell Count 4.88 10^6/uL (4.70-6.10); Red Cell Dist. Width 12.9 % (11.5-14.5); White Blood Cell Count 20.9 10^3/uL (4.8-10.8)
[2024-07-09 06:49] LABS: Blood Urea Nitrogen 62 mg/dl (9-20); Calcium 9.2 mg/dl (8.4-10.2); Carbon Dioxide 22 mmol/L (22-30); Chloride 108 mmol/L (98-107); Estimated Creatinine Clearance 42 ml/min; Glucose 123 mg/dl (70-99); Potassium 4.4 mmol/L (3.5-5.1); Sodium 141 mmol/L (135-145); eGFR 53.07
[2024-07-09] MEDS: PULMICORT 0.5 MG INH (07:20)
[2024-07-09] MEDS: DUONEB 3 ML INH ×2 (07:20→11:07)
[2024-07-09 07:40] VITALS: BP 139/81
[2024-07-09] MEDS: MIRALAX PO (08:42)
[2024-07-09] MEDS: CARDIZEM 30 MG PO (08:42)
[2024-07-09] MEDS: ELIQUIS 5 MG PO (08:42)
[2024-07-09] MEDS: DELTASONE 50 MG PO (08:42)
[2024-07-09] MEDS: ZITHROMAX 250 MG PO (08:42)
[2024-07-09] MEDS: TESSALON PERLES 200 MG PO (08:42)
--- NOTE | 2024-07-09 10:01 | W.PN.HOSP.TC ---
Today's Communication/Plan
-
dc home/VN
Assessment / Plan
Assessment / Plan
Assessment:
AE-COPD
Acute Hypoxemic Respiratory Insufficiency secondary to the above
- COVID/flu negative in the ED. CXR unremarkable.
- dc on prednisone taper
- nebs ATC and PRN.
- Trelegy daily at dischage
- PO azithromycin finite course
- passed Home O2 eval
- OP Pulm f/u
ASCVD
- Stable. No chest pain. EKG is without acute ischemic changes.
- Continue usual CV med regimen.
Permanent Atrial Fibrillation
NSVT on tele
- Cardizem CD at discharge
- Continue Eliquis.
Essential HTN
- continue Losartan
- stop Amlodipine and start Cardizem as above for rate control
CKD IIIb (no ROSA ISELA)
- Stable. Renal function is at/near known baseline.
BARRY
- Patient notes that he is intolerant of PAP therapy.
BPH
- Continue tamsulosin.
- Bladder scan protocol.
DVT Prophylaxis: Eliquis
Code Status: Full
More than 30 minutes spent in discharge including
Final examination of the patient
Summarizing hospital stay
Instructions for continuing care to all relevant caregivers
Preparation of discharge records, prescriptions, and referral forms
Total time spent (in minutes): 41
Anticipated Discharge: Today
Subjective/Interval History
-
Date of Service: July 09, 2024
SOB mostly resolved
Objective Data
-
Labs:
Laboratory Results
07/09/24
06:07
WBC 20.9 H
Hgb 15.4
Hct 44.9
Plt Count 178
Sodium 141
Potassium 4.4
Chloride 108 H
Carbon Dioxide 22
BUN 62 H
Creatinine 1.4 H
Glucose 123 H
Calcium 9.2
Vital Signs:
Vital Signs
Temp Pulse Resp BP Pulse Ox
97.5 F 96 18 139/81 95
07/09/24 07:40 07/09/24 07:40 07/09/24 07:40 07/09/24 07:40 07/09/24 07:40
I&O
07/08/24 07/09/24 07/10/24
06:59 06:59 06:59
Intake Total 720 / 720 1680 / 1680
Output Total 400 / 400
Balance 320 / 320 1680 / 1680
Physical Exam
-
General: No Apparent Distress
HEENT: Normocephalic and Atraumatic
Respiratory: Wheezes (faint)
Cardiac: Regular Rhythm and S1/S2
GI: Soft and Nontender
Musculoskeletal: No Edema
Neuro: AO x 3
Hematologic / Lymphatic: No Lymphadenopathy
Psych: Calm
Data Reviewed
-
Total Time Spent with Patient (in minutes): 45
Labs: Labs Reviewed by me
--- NOTE | 2024-07-09 10:10 | W.DS.TRANS ---
DC Summary - [employer]
-
Discharge Instructions:
Discharge Diagnosis/Procedures Acute COPD Exacerbation
Diet Regular
Activity As tolerated
Bathing Restrictions None
Other Services VN
Instructions:
Stand-Alone Forms:
Changes to Home Medications: Yes
Discharge Medications:
DC Medications w/original date entered in [employer]
apixaban 5 mg tablet (Eliquis) 5 mg PO BID Arrhythmia #60 tabs 04/28/20
ascorbic acid (vitamin C) 1,000 mg tablet (Vitamin C) 1,000 mg PO DAILY supplement 01/12/23
ezetimibe 10 mg tablet 10 mg PO HS High Cholesterol 01/12/23
tamsulosin 0.4 mg capsule 0.4 mg PO HS Urinary Issue 01/12/23
cholecalciferol (vitamin D3) 50 mcg (2,000 unit) tablet (Vitamin D3) 50 mcg PO DAILY Supplement 07/05/24
cyanocobalamin (vitamin B-12) 1,000 mcg tablet 1,000 mcg PO DAILY Supplement 07/05/24
losartan 50 mg tablet 50 mg PO HS Blood Pressure 07/05/24
potassium chloride 10 mEq capsule,extended release 10 meq PO DAILY Supplement 07/05/24
rosuvastatin 40 mg tablet 40 mg PO HS High Cholesterol 07/05/24
zinc sulfate 50 mg zinc (220 mg) tablet 50 mg PO DAILY Supplement 07/05/24
albuterol sulfate 90 mcg/actuation aerosol inhaler 2 puff inhalation R Q6HPRN PRN shortness of breath or wheezing #8.5 grams 07/09/24
azithromycin 250 mg tablet 250 mg PO DAILY #1 tab 07/09/24
diltiazem HCl 120 mg capsule,extended release 24 hr (Cardizem CD) 120 mg PO DAILY #30 caps 07/09/24
fluticasone fur. 200 mcg-umeclid 62.5 mcg-vilant 25 mcg inhalat.powder (Trelegy Ellipta) 1 inh inhalation DAILY #60 ea 07/09/24
ipratropium 0.5 mg-albuterol 3 mg (2.5 mg base)/3 mL nebulization soln 3 ml inhalation R QID #90 mL 07/09/24
prednisone 10 mg tablet 10 mg PO DIRECTED #45 tabs 07/09/24
Home Medication Changes
Cardizem in favor of Norvasc
Pending Results: No
Total time spent discharging patient (in min): 41
[2024-07-09 11:30] VITALS: BP 140/79
--- NOTE | 2024-07-09 11:41 | CM ---
Received notification that patient is cleared for discharge. Spoke with patient who declined VN. Attending updated. Patient agreeable to d/c, IMM reviewed and is on chart.
Plan: Case management will continue to follow and assist discharge planning. Home no needs.
== END 2024-07-09 12:41 | disposition home or self-care (01) | DRG 191 ==
LOC: 4 EAST ACU 01:36
PROVIDERS: Emergency Medicine; Registered Nurse; ADMITTING PHYSICIAN Hospitalist; ATTENDING PHYSICIAN Internal Medicine; CONSULT PHYSICIAN Internal Medicine Critical Care Medicine; EMERGENCY PHYSICIAN Emergency Medicine; FAMILY PHYSICIAN Family Medicine
DX: J44.1 Chronic obstructive pulmonary disease with (acute) exacerbation (principal); I47.10 Supraventricular tachycardia, unspecified; I48.21 Permanent atrial fibrillation; N25.81 Secondary hyperparathyroidism of renal origin; R09.02 Hypoxemia; I25.10 Atherosclerotic heart disease of native coronary artery without angina pectoris; I12.9 Hypertensive chronic kidney disease with stage 1 through stage 4 chronic kidney disease, or unspecified chronic kidney disease; N18.32 Chronic kidney disease, stage 3b; G47.33 Obstructive sleep apnea (adult) (pediatric); N40.0 Benign prostatic hyperplasia without lower urinary tract symptoms; Z95.1 Presence of aortocoronary bypass graft; Z95.5 Presence of coronary angioplasty implant and graft; Z87.891 Personal history of nicotine dependence; Z79.01 Long term (current) use of anticoagulants; I73.9 Peripheral vascular disease, unspecified; Z86.73 Personal history of transient ischemic attack (TIA), and cerebral infarction without residual deficits; E78.00 Pure hypercholesterolemia, unspecified; Z82.0 Family history of epilepsy and other diseases of the nervous system; Z80.0 Family history of malignant neoplasm of digestive organs; Z82.49 Family history of ischemic heart disease and other diseases of the circulatory system; I27.20 Pulmonary hypertension, unspecified; Z11.52 Encounter for screening for COVID-19
CPT/HCPCS: 71046; 80048; 80053; 83036; 83735; 85025; 85027; 87502; 87811; 93005; 94640; 96374; 97162; 99285

== ENCOUNTER → 2024-10-31 12:56 | Outpatient (REF) | payer OTHER, SELFPAY | LOC: HWRAD 12:56 | PROVIDERS: ATTENDING PHYSICIAN Nurse Practitioner Adult Health; FAMILY PHYSICIAN Family Medicine | DX: I71.40 Abdominal aortic aneurysm, without rupture, unspecified (principal); R91.1 Solitary pulmonary nodule | CPT/HCPCS: 71250; 76770 ==